=== PATIENT | female | born 1995 | race Caucasian/White ===

== ENCOUNTER 2020-05-17 12:54 | Emergency (ER) | payer OTHER ==
[~2020-05-17] VITALS: Ht 165.1 cm; Wt 84.7 kg
[2020-05-17 12:55] VITALS: BP 153/95
[2020-05-17] MEDS ORDERED: OMEP40CA97 PO (13:01)
[2020-05-17] MEDS ORDERED: MULTTAB20 PO (13:01)
[2020-05-17] MEDS ORDERED: ZOFR4TAB16 PO (13:02)
--- NOTE | 2020-05-17 13:42 | REP ---
INDICATION: FALL. COMPARISON: None. TECHNIQUE: Four views. Appropriately shielded. FINDINGS: The four views show metatarsals and phalanges without visible or displaced fracture. MTP and IP joints were unremarkable. The tarsal bones and articulations are grossly intact. Talonavicular and calcaneocuboid joints are normal. Subtalar joints intact. No heel spurs. Visualized portions of distal radius and ulna were intact. Some minor soft tissue swelling about the hindfoot and ankle. IMPRESSION: 1. Minor soft tissue swelling posteriorly in the hindfoot ankle region without visible or displaced fracture, avulsion, subluxation or other acute bony finding. <Electronically signed by Zak Salas > 05/17/20 [id number]
--- OUTSIDE RECORDS SUMMARY | 2020-05-17 14:06 | CCD ---
Author Author [facility] Address Unknown Phone Unavailable Support Name Relationship Address Phone UE Next Of Kin Unknown Unavailable VIOLETA WANG Next Of Kin [address] [place] [address] Re-disclosure Warning The records that you are about to access may contain information from federally-assisted alcohol or drug abuse programs. If such information is present, then the following federally mandated warning applies: This information has been disclosed to you from records protected by federal confidentiality rules (42 CFR part 2). The federal rules prohibit you from making any further disclosure of this information unless further disclosure is expressly permitted by the written consent of the person to whom it pertains or as otherwise permitted by 42 CFR part 2. A general authorization for the release of medical or other information is NOT sufficient for this purpose. The Federal rules restrict any use of the information to criminally investigate or prosecute any alcohol or drug abuse patient.The records that you are about to access may contain highly sensitive health information, the redisclosure of which is protected by Article 27-F of the [facility] Public Health law. If you continue you may have access to information: Regarding HIV / AIDS; Provided by facilities licensed or operated by the [facility] Office of Mental Health; or Provided by the [facility] Office for People With Developmental Disabilities. If such information is present, then the following [facility] mandated warning applies: This information has been disclosed to you from confidential records which are protected by state law. State law prohibits you from making any further disclosure of this information without the specific written consent of the person to whom it pertains, or as otherwise permitted by law. Any unauthorized further disclosure in violation of state law may result in a fine or halfway sentence or both. A general authorization for the release of medical or other information is NOT sufficient authorization for further disc losure. Insurance Providers Payer name Policy type / Coverage type Policy ID Covered republican ID Covered republican's relationship to ramos Policy Ramos Plan Information [facility] [id number] [facility] [id number]
== END 2020-05-17 14:09 | disposition home or self-care (01) ==
LOC: M ED 12:54
DX: O9A.212 Injury, poisoning and certain other consequences of external causes complicating pregnancy, second trimester (principal); S93.601A Unspecified sprain of right foot, initial encounter; W01.0XXA Fall on same level from slipping, tripping and stumbling without subsequent striking against object, initial encounter; Y92.019 Unspecified place in single-family (private) house as the place of occurrence of the external cause; Y93.9 Activity, unspecified; Y99.9 Unspecified external cause status; Z88.8 Allergy status to other drugs, medicaments and biological substances; Z79.899 Other long term (current) drug therapy; Z3A.15 15 weeks gestation of pregnancy

== ENCOUNTER 2020-10-17 09:25 | Outpatient (CLI) | payer OTHER ==
[2020-10-17] VITALS (8 sets, daily range): BP systolic 122–145; BP diastolic 80–97
[~2020-10-17] VITALS: Ht 165.1 cm; Wt 95.8 kg
[~2020-10-17 09:25] MED LIST: MULTTAB20 PO; OMEP40CA4 PO; ZOFR4TAB16 PO
[2020-10-17] MEDS ORDERED: FIOR1CAP PO (10:09)
[2020-10-17] MEDS ORDERED: SERT25TA85 PO (10:10)
[2020-10-17 10:46] LABS: HEMATOCRIT 36.5 % (36.0-47.0); HEMOGLOBIN 12.3 g/dl (12.0-15.5); MEAN CORPUSCULAR HEMOGLOBIN 31.5 pg (27.0-33.0); MEAN CORPUSCULAR HGB CONC 33.7 g/dl (32.0-36.5); MEAN CORPUSCULAR VOLUME 93.6 fl (80.0-96.0); PLATELET COUNT, AUTOMATED 174 10^3/uL (150-450); WHITE BLOOD COUNT 10.9 10^3/uL (4.0-10.0)
[2020-10-17 10:56] LABS: TOTAL PROTEIN,RANDOM URINE 16.7 MG/DL (0.0-12.0)
[2020-10-17 11:48] LABS: ALT/SGPT 17 U/L (12-78); BILIRUBIN,TOTAL 0.5 MG/DL (0.2-1.0); CREATININE FOR GFR 0.64 MG/DL (0.55-1.30); GLOMERULAR FILTRATION RATE > 60.0 (>60); LDH LACTATE DEHYDROGENASE 143 U/L (84-246); URIC ACID 4.5 MG/DL (2.6-6.0)
--- NOTE | 2020-10-17 12:56 | IPNPDOC ---
Obstetrical Progress Note Date of Service Oct 17, 2020 Subjective 25yo at 36w5d by 8w6d US with LAKESHA Oct presents to OB triage with c omplaint of leakage of fluid x3 days. States she first noticed 'feeling wet' on Thursday night, and has noted a continuous discharge of clear, nonodorous fluid since that time. She is currently using a panty liner which she changes every few hours. Denies any large gush of fluid, vaginal bleeding or regular contractions. +GFM. She is otherwise without complaint. Objective Vital Signs Date Time Temp Pulse Resp B/P (MAP) Pulse Ox O2 Delivery O2 Flow Rate FiO2 10/17/20 11:32 69 135/80 (98) 10/17/20 09:46 97.5 18 Assessment Heart Rate (FHR): 140 Variability: Moderate Accelerations: Positive Decelerations: None Heart Rate Tracing: Category I Tocometer Contractions: Yes (pt not feeling) Frequency: irregular Sterile Vaginal Examination Dilation: 1cm Effacement (%): 50% Station: -2 Cervical Consistency: Soft Cervical Position: Middle Postion/Presentation: Cephalic presentation Assessment and Plan Status: Reassuring Additional Comments Vitals: mild range BP noted on arrival. General: AAOx3, NAD CV/Lungs: normal rate, normal work of breathing Abdomen: gravid speculum exam: neg for nitrizine, pooling and ferning. Pt noted to have a 2-3 cm vaginal cyst along R sidewall, nontender to palpation. Appears to be partially drained (possible cause of fluid leakage). SVE 1/50/-2, soft wet prep + for >50% clue cells Laboratory Tests 10/17/20 10:11 Vital Signs Date Time Temp Pulse Resp B/P (MAP) Pulse Ox O2 Delivery O2 Flow Rate FiO2 10/17/20 11:32 69 135/80 (98) 10/17/20 11:17 79 125/88 (100) 10/17/20 11:02 76 134/95 (108) 10/17/20 10:47 81 132/93 (106) 10/17/20 10:32 82 128/90 (103) 10/17/20 10:18 86 122/88 (99) 10/17/20 10:02 85 145/97 (113) 10/17/20 09:46 97.5 99 18 142/97 (112) Laboratory Tests 10/17/20 10:11: White Blood Count 10.9H, Red Blood Count 3.90L, Hemoglobin 12.3, Hematocrit 36.5, Mean Corpuscular Volume 93.6, Mean Corpuscular Hemoglobin 31.5, Mean Corpuscular Hemoglobin Concent 33.7, Red Cell Distribution Width 13.4, Platelet Count 174, Nucleated Red Blood Cells % (auto) 0.0, Creatinine 0.64, Glomerular Filtration Rate > 60.0, Uric Acid 4.5, Total Bilirubin 0.5, Aspartate Amino Transf (AST/SGOT) 13, Alanine Aminotransferase (ALT/SGPT) 17, Lactate Dehydroge nase 143 10/17/20 10:18: Urine Random Creatinine 111.0, Urine Random Total Protein 16.7H TAUS: cephalic presentation, MVP 5.2cm. anatomy not assessed. A/P: Reviewed findings with patient. No evidence of ROM. Pt noted to have elevated BP in triage, preeclampsia labs ordered and within normal limits. UPC 0.15. Will send patient home with 24hr urine collection and instructed to drop off at [facility]. ROM workup negative. Pt noted to have large vaginal cyst on exam and +clue cells on wet prep. Discussed that cyst may be spontaneously draining causing her leakage of clear fluid, in addition to the findings of BV on wet prep. Pt requesting topical treatment of BV. Recommend reevaluating cyst on KEY visit, and if still present, could offer drainage in office. All questions answered. KEY on Oct ZACHARY CRUZ M.D. Oct 17, 2020 12:56
== END 2020-10-17 11:55 | disposition home or self-care (01) ==
LOC: M LDO 09:25
PROVIDERS: ATTEND Obstetrics & Gynecology
DX: O26.893 Other specified pregnancy related conditions, third trimester (principal); N89.8 Other specified noninflammatory disorders of vagina; N90.7 Vulvar cyst; Z79.899 Other long term (current) drug therapy; Z88.8 Allergy status to other drugs, medicaments and biological substances
CPT/HCPCS: 36415; 59025; 76815; 82247; 82565; 82570; 83615; 84156; 84450; 84460; 84550; 85027; G0378; G0463

== ENCOUNTER 2020-10-18 20:17 | Inpatient (IN) | payer OTHER ==
[~2020-10-18] VITALS: Ht 165.1 cm; Wt 97.7 kg
[~2020-10-18 20:17] MED LIST changes: +FIOR1CAP PO; +SERT25TA85 PO
[2020-10-18 20:44] VITALS: BP 144/98
[2020-10-18 20:54] VITALS: BP 142/97
[2020-10-18] MEDS ORDERED: METHYLERGONOVINE MALEATE 0.2 MG/ML VIAL (J2210) IM PRN (20:55)
[2020-10-18] MEDS ORDERED: LR 1,000 ML IV SCH (20:55)
[2020-10-18] MEDS ORDERED: LACTATED RINGER'S 1000 ML IV ONE (20:55)
[2020-10-18] MEDS ORDERED: OXYTOCIN INJ 10 UNITS/ML VIAL (J2590) IV PRN (20:55)
[2020-10-18 21:12] VITALS: BP 139/88
--- NOTE | 2020-10-18 21:37 | HPEPDOC ---
Obstetrical History & Physical General Date of Admission Item Value Date Time Urine Random Creatinine 152.0 MG/DL 10/18/202233 Urine Random Total Protein 19.7 MG/DL H 10/18/202233 Vital Signs Label Value Date Time Blood Pressure Assessment 139/88 (105) 10/18/202111 Source Automatic Cuff (NIBP) Pulse 88 10/18/202111 Pulse 95 10/18/202053 Blood Pressure Assessment 142/97 (112) 10/18/202053 Source Automatic Cuff (NIBP) Blood Pressure Assessment 144/98 (113) 10/18/202043 Source Automatic Cuff (NIBP) Pulse 105 10/18/202043 Item Value Date Time White Blood Count 11.3 10^3/uL H 10/18/202126 Red Blood Count 3.69 10^6/uL L 10/18/202126 Hemoglobin 11.7 g/dl L 10/18/202126 Hematocrit 34.2 % L 10/18/202126 Mean Corpuscular Volume 92.7 fl 10/18/202126 Mean Corpuscular Hemoglobin 31.7 pg 10/18/202126 Mean Corpuscular Hemoglobin Concent 34.2 g/dl 10/18/202126 Red Cell Distribution Width 13.3 % 10/18/202126 Platelet Count 174 10^3/uL 10/18/202126Oct 18, 2020 at 20:36 Primary Care Physician: Fiasal Plata MD History of Present Illness SROM CLEAR FLUID NO CONTRACTIONS AT36.6 WEEKS Chief Complaint: Contractions, pre-term Information Provided By: Patient Age: 25 : 3 Term: 1 Pre-term: 0 Abortions: 1 Livin Care Care: Good Care Number of Visits: 8 Dating Final EDC: Nov 09, 2020 LMP: Jan 26, 2020 Weeks + Days: 8.6 Estimated Date of Confinement: Nov 09, 2020 EGA at Admission: 36.6 Antepartum Course Diagnos(e)s PPROM AT 36.6 WEEKS Height (inches): 64 Pre- weight (lbs.): 182 Admission Weight (lbs.): 211.0 Change in Weight (lbs.): 29 Past Medical History Past Obstetrical History #1: Past Obstetrical History: Multigravida Date of Delivery: Feb 13, 2012 Gestation: 39.0 Type of Delivery: Spontaneous Vaginal Del. 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: Spontaneous , Other (VULVAR DYSPLASIA) Past Medical History Medical History MIGRAINES,ANXIETY DEPRESSION ON MEDICATION Surgical History: Other (FINGER SURGERY) Family History Family History MOTHER CERVICAL DYSPLASIA,GRANDMOTHER HEME CANCER ,LIVER DISEASE Social History Social history TO AD NO VIOLENCE NON SMOKER NO ETOH NO VAPING NO RECREATIONAL DRUGS Marital Status: Family situation: Spouse/partner home Psychosocial History: Anxiety (ON [place]) * Smoker: non-smoker Alcohol: Denies Drugs: denies Abuse Violence Screening Have you been hit/kicked/slapp: No Have you been sexually assault: No Imunizations Tdap status: current Influenza Status: current Allergies Coded Allergies: sumatriptan (Verified Adverse Reaction, Mild, ITCHY THROAT, 05/17/20) Medications Scheduled No122/Iron/Folic Acid ( Multi Tablet) 1 Each Tablet, 1 TAB PO DAILY Sertraline Hcl (Sertraline HCl) 25 Mg Tablet, 1 TAB PO DAILY Scheduled PRN Butalb/Acetaminophen/Caffeine (Fioricet 50-300-40 mg Capsule) 1 Each Capsule, 1 CAP PO for HEADACHE Physical Examination Physical Examination GENERAL: Alert and oriented times three. BREAST: . ABDOMEN: Gravid and non-tender to touch. FETUS: Is vertex (VTX) by sterile vaginal examination (SVE), fetus is vertex (VTX) by Philippe. HEART RATE: Regular rate and rhythm. LUNGS: Clear to auscultation (CTA). EXTREMITIES: No edema. No clonus. Deep tendon reflexes (DTRs) + . Other physical findings NORMOCEPHALIC,ORIENTATED ALL SPHERES NO ACUTE DISTRESS ATROMATIC NECK FULL RANGE MOTION, PERRLA,CHEST CLEAR TO BASES NO MURMUR REGULAR RHYTHM NO WHEEZES NO RHONCHI NO SOB NO BACK TENDERNESS 4 QUADRANT BOWEL SOUNDS SF HEIGHT 40 CM NO RASHES LESIONS OR PARIETIS NO ARTHRALGIA MYALGIA OR JOINT PAIN, NO BRUISING OR BLEEDING , NO URGENCY NO FREQUENCY NO NUSEA NO VOMITING NO DIABETIC ISSUES . PELVIC EXAM 2CM SOFT MID POSITION VERTEX 50% EFFACED -3 STATION ANOTHER 400 CC AMNIOTIC FLUID . CATEGORY 1 STRIP NO CONTRACTIONS Laboratory Data 24H LABS Laboratory Tests 2 10/18/20 20:38: Serology Scanned Report Hepatitis B Testing Pertinent Laboratoy Data Blood Type: O+ RBC Antibody Screen: Negative HIV: Negative Hepatitis B: Negative Rapid Plasma Reagin: Nonreactive Rubella: Immune Varicella: Immune Chlamydia/Gonorrhea: Negative Group B Streptococcus: Negative Cystic Fibrosis: Negative Anatomy Ultrasound Ultrasound Date: Jun 22, 2020 Placenta Location: Anterior Normal Anatomy: Yes Estimated Weight (grams): 358 Steroid Therapy Steroid Therapy: No Vaginal Examination Dilation: 2cm Effacement: 50% Station: -3 Cervical Consistency: Soft Cervical Position: Middle Presentation: Cephalic presentation Position: Vertex (occiput) Assessment Variability: Moderate Accelerations: Present Decelerations: None Tocometer Contractions: No Assessment/Plan Assessment 25-year-old (G)3 para (P)1 at 36.6 weeks by 8.6 -week ultrasound. Presents to Labor and Delivery (L&D) .WITH PPROM Plan Admit and orient. [employer] Supervisor and consent. Diet: RAJ Group B Streptococcus (GBS) [negative]. Labs and intravenous (IV) per unit protocol. Counseled on Pitocin and AUGMENTATION . Lactated Ringers (LR): Bolus 1000 mL PRE EPIDURAL, then at 125 mL/hr. Anticipate [normal spontaneous delivery ()]. C-S as appropriate. Labor and Delivery Counseling PLAN IS AWAIT SPONTANEOUS LABOR IF NOT ACTIVE WILL AUGMENT WITH PITOCIN AND OR COOK'S CATHETER EPIDURAL NEEDED REVIEWED VAGINAL DELIVERY CAN SUSTAIN VAGINAL BLADDER OR BOWEL LACERATIONS MAY NEED EPISIOTOMY WHEN UNABLE TO EFFECTIVELY PUSH BABY OUT SPONTANEOUSLY. REVIEWED NEED FOR REPAIR OF ALL LACERATIONS. REVIEWED USE OF FORCEPS OR VACUUM MAY LEAD TO NRFHT, REQUIRE IMMEDIATE DELIVERY BASED ON WELL BEING POSSIBLE CEPHALOHEMATOMA, SCRATCHES BRUISING OR LACERATIONS . IS FOR MATERNAL OR NEEDS , WILL BE DISCUSSED PRIOR TO COMMENCEMENT. RISK OF IS HEMORRHAGE INFECTION PERFORATION , REOPERATION REMOTE BLOOD TRANSFUSION, REMOTE HYSTERECTOMY FOR LIFE THREATENING BLEEDING REMOTE LACERATION OR ADMISSION TO NICU EXPRESSED UNDERSTANDING SAFE TO PROCEED Faisal Plata MD Oct 18, 2020 21:37
[2020-10-18 21:45] LABS: HEMATOCRIT 34.2 % (36.0-47.0); HEMOGLOBIN 11.7 g/dl (12.0-15.5); MEAN CORPUSCULAR HEMOGLOBIN 31.7 pg (27.0-33.0); MEAN CORPUSCULAR HGB CONC 34.2 g/dl (32.0-36.5); MEAN CORPUSCULAR VOLUME 92.7 fl (80.0-96.0); PLATELET COUNT, AUTOMATED 174 10^3/uL (150-450); RED BLOOD COUNT 3.69 10^6/uL (4.00-5.40); WHITE BLOOD COUNT 11.3 10^3/uL (4.0-10.0)
[2020-10-18 23:01] VITALS: BP 136/91
[2020-10-18 23:09] LABS: TOTAL PROTEIN,RANDOM URINE 19.7 MG/DL (0.0-12.0)
[2020-10-18 23:31] VITALS: BP 118/78
[2020-10-19] VITALS (38 sets, daily range): BP systolic 105–159; BP diastolic 6–110
[2020-10-19] MEDS ORDERED: LR 1,000 ML IV SCH ×2 (00:05→08:35)
[2020-10-19] MEDS ORDERED: OXYTOCIN DRIP 30 UNITS in IV 1 EA IV SCH ×2 (00:05→08:35)
[2020-10-19] MEDS ORDERED: ACETAMINOPHEN 500 MG TAB PO ONE (00:30)
[2020-10-19] MEDS ORDERED: FENTANYL 2MCG/ML ROPIVACAINE 0.2% IN 0.9% NACL 100ML IVBAG As Ordered ONE (04:05)
[2020-10-19] MEDS ORDERED: ePHEDrine SULFATE 25 MG/5 ML(5MG/ML) SYRINGE IV PRN (04:10)
[2020-10-19] MEDS ORDERED: FENTANYL/ROPIVACAINE/NACL BAG 100 ML EPIDURAL SCH (04:10)
[2020-10-19] MEDS ORDERED: NALOXONE INJ 0.4MG/1ML VIAL (J2310 PER 1MG) IV PRN (04:10)
[2020-10-19] MEDS ORDERED: diphenhydrAMINE 50MG/ML VIAL (J1200) IV PRN (04:10)
[2020-10-19] MEDS ORDERED: EPIDURAL/PCA KEYS XX PRN (04:10)
[2020-10-19] MEDS ORDERED: EPIDURAL COMMENT XX SCH (04:10)
[2020-10-19] MEDS ORDERED: LACTATED RINGER'S 1000 ML IV PRN (04:10)
[2020-10-19] MEDS ORDERED: REFRIGERATOR IV KEYS XX PRN (04:10)
[2020-10-19] MEDS ORDERED: ONDANSETRON 4MG/2ML VIAL IV PRN (04:10)
[2020-10-19 08:17] LABS: CORD GAS ABE A -9.3; CORD GAS ABE V -5.7; CORD GAS HCO3 A 22.3 MEQ/L; CORD GAS HCO3 V 18.5 MEQ/L; CORD GAS O2 SAT A 25.3 %; CORD GAS PCO2 A 77.9 mmHg; CORD GAS PCO2 V 33.8 mmHg; CORD GAS PH A 7.075 UNITS; CORD GAS PH V 7.355 UNITS; CORD GAS PO2 A 18.8 mmHg; CORD GAS PO2 V 40.9 mmHg; CORD GAS SBC A 15.7 MEQ/L; CORD GAS SBC V 19.6 MEQ/L; CORD GAS TCO2 A 24.7 MEQ/L; CORD GAS TCO2 V 19.5 MEQ/L
[2020-10-19] MEDS ORDERED: METHYLERGONOVINE MALEATE 0.2 MG TAB PO PRN (08:35)
[2020-10-19] MEDS ORDERED: MOM 30ML SUSPENSION UDC PO PRN (08:35)
[2020-10-19] MEDS ORDERED: DIBUCAINE 1% OINTMENT 30GM TOP PRN (08:35)
[2020-10-19] MEDS ORDERED: ACETAMINOPHEN TAB 650MG DOSE (2X325MG) PO PRN (08:35)
[2020-10-19] MEDS ORDERED: DOCUSATE SODIUM 100MG CAPSULE PO PRN (08:35)
[2020-10-19] MEDS ORDERED: OXYTOCIN INJ 10 UNITS/ML VIAL (J2590) IV ONE (08:35)
[2020-10-19] MEDS ORDERED: ANUSOL HC CREAM 30GM TOP PRN (08:35)
[2020-10-19] MEDS ORDERED: RHOGAM 300 MCG (1500 IU) INJ (J2790) IM SCH (08:35)
[2020-10-19] MEDS ORDERED: MEASLES,MUMPS,RUBELLA VACCINE INJ (MMR-II) (90707) SC SCH (08:35)
[2020-10-19] MEDS ORDERED: METHYLERGONOVINE MALEATE 0.2 MG/ML VIAL (J2210) IM STA (08:46)
[2020-10-19] MEDS ORDERED: OXYTOCIN 30 UNITS IN 0.9% NaCl 500ML IV BAG (J2590) As Ordered ONE (09:08)
[2020-10-19] MEDS: OXYTOCIN DRIP 30 UNITS in IV 1 EA IV SCH ×2 (09:10→16:00)
[2020-10-19] MEDS: PRENATAL VITAMINS CHEWABLE TABLET PO SCH (10:13)
[2020-10-19] MEDS: IBUPROFEN 600MG TAB PO PRN ×2 (10:13→19:37)
[2020-10-19] MEDS: SERTRALINE HCL 25 MG TABLET PO SCH (10:13)
[2020-10-19] MEDS: OMEPRAZOLE 20 MG CAP PO SCH ×2 (11:17→21:00)
--- NOTE | 2020-10-19 11:34 | DN ---
DELIVERY NOTE DATE OF DELIVERY: 10/19/2020 A 25-year-old 3 admitted with spontaneous rupture of membranes at 36 and 6 weeks of gestation. Delivered with an epidural spontaneous, male , 7 pounds 11 ounces, 3500 grams, scores of 8 and 9 at one and five minutes, respectively. Cord around the neck times one tight. Arterial pH 7.07, base excess-9.3, venous pH 7.35, base excess -5.7. She was noted to have polyhydramnios, etiology unknown. She also suffers from anxiety. The placenta delivered spontaneously thereafter, a 3-vessel cord, membranes and tissues intact. The uterus contracted well down on Pitocin. Reviewing, the anterior, posterior, and lateral pho[place] were complete. Sphincter was tight. She has a vaginal cyst on the left upper end of the vagina wall, which is benign. Does not require any intervention. The uterus contracted well down. The patient and baby tolerating procedure well.
[2020-10-19] MEDS: ACETAMINOPHEN 500 MG TAB PO PRN ×2 (14:36→23:47)
[2020-10-19 18:47] LABS: HEMATOCRIT 31.5 % (36.0-47.0); HEMOGLOBIN 10.7 g/dl (12.0-15.5); MEAN CORPUSCULAR HEMOGLOBIN 31.8 pg (27.0-33.0); MEAN CORPUSCULAR VOLUME 93.5 fl (80.0-96.0); PLATELET COUNT, AUTOMATED 159 10^3/uL (150-450); RED BLOOD COUNT 3.37 10^6/uL (4.00-5.40)
[2020-10-19 18:53] LABS: ALBUMIN 2.5 GM/DL (3.2-5.2); ALT/SGPT 18 U/L (12-78); BILIRUBIN,TOTAL 0.5 MG/DL (0.2-1.0); BLOOD UREA NITROGEN 5 MG/DL (7-18); CALCIUM LEVEL 8.9 MG/DL (8.5-10.1); CARBON DIOXIDE LEVEL 22 MEQ/L (21-32); CHLORIDE LEVEL 111 MEQ/L (98-107); CREATININE FOR GFR 0.53 MG/DL (0.55-1.30); GLOMERULAR FILTRATION RATE > 60.0 (>60); GLUCOSE, FASTING 94 MG/DL (70-100); POTASSIUM SERUM 3.6 MEQ/L (3.5-5.1); SODIUM LEVEL 141 MEQ/L (136-145); TOTAL PROTEIN 5.2 GM/DL (6.4-8.2)
[2020-10-20] MEDS: IBUPROFEN 600MG TAB PO PRN ×2 (04:16→13:05)
[2020-10-20 06:00] VITALS: BP 128/79
--- NOTE | 2020-10-20 06:50 | IPNPDOC ---
Progress Note Date of Service: Oct 20, 2020 Day#: 1 Progress Note Ms. Corrigan is a 25yo PPD1 s/p after IOL for PPROM at 36+6, delivering at 37 weeks. 7 pounds 11 ounces, 3500 grams, scores of 8 and 9. She has been ambulating, voiding spontaneously without issue and tolerating regular diet. Breast feeding without issue. Reports lochia is light. Patient is ambulating well. Reports some cramping with . Denies any pain. Voiding and stooling without difficulty. APC 1. depression, anxiety 2. migraines 3. gestational hypertension, normal pre-eclampsia labs OBJECTIVE: VITAL SIGNS: Within normal limits, afebrile. Alert and oriented times three. No increased wob Heart rate: non-tachycardic Abdomen: Fundus firm at U-2. Soft, NTTP. [Minimal] lochia per pt ASSESSMENT: Ms. Corrigan is a 25yo PPD1 s/p after IOL for PPROM at 36+6, delivering at 37 weeks. 7 pounds 11 ounces, 3500 grams, scores of 8 and 9. She has been ambulating, voiding spontaneously without issue and tolerating regular diet. Vitals within normal limits with exception of BP which has been normotensive to mild range, but not meeting criteria for treatment. Denied si/sx of pre-e. Afebrile, hemodynamically stable with no evidence of infection. PLAN: 1. Discharge to home today. 2. Tylenol and Motrin for pain. 3. Encourage breast feeding and ambulation. 4. Undecided contraception, educated on close interval 5. Routine PP visit in 2 and 6 weeks in clinic. 6. Discussed return precautions at length. VS, I&O, 24H, Fishbone Vital Signs/I&O Vital Signs Date Time Temp Pulse Resp B/P (MAP) Pulse Ox O2 Delivery O2 Flow Rate FiO2 10/20/20 06:00 99.0 67 18 128/79 (95) 98 Room Air I&O- Last 24 Hours up to 6 AM 10/20/20 06:00 Intake Total 1718.5 ml Output Total 800 ml Balance 918.5 ml Laboratory Data 24H LABS Laboratory Tests 2 10/19/20 08:09: Cord Arterial Blood pH 7.075, Cord Arterial Blood PCO2 77.9, Cord Arterial Blood PO2 18.8, Cord Arterial Blood HCO3 22.3, Cord Arterial Blood Total CO2 24.7, Cord Arterial Blood Base Excess -9.3, Cord Arterial Base Excess (Standard 15.7, Cord Arterial Bld Oxygen Saturation 25.3, Cord Venous Blood pH 7.355, Cord Venous Blood PCO2 33.8, Cord Venous Blood PO2 40.9, Cord Venous Blood HCO3 18.5, Cord Venous Blood Total CO2 19.5, Cord Venous Base Excess (Actual) -5.7, Cord Venous Base Excess (Standard) 19.6, Cord Venous Blood Oxygen Saturation 86.0 10/19/20 17:53: Nucleated Red Blood Cells % (auto) 0.0, Anion Gap 8, Glomerular Filtration Rate > 60.0, Calcium Level 8.9, Total Bilirubin 0.5, Aspartate Amino Transf (AST/SGOT) 22, Alanine Aminotransferase (ALT/SGPT) 18, Alkaline Phosphatase 87, Total Protein 5.2L, Albumin 2.5L, Albumin/Globulin Ratio 0.9L CBC/BMP Laboratory Tests 10/19/20 17:53 TANA ROLLINS DO Oct 20, 2020 06:50
--- NOTE | 2020-10-20 06:53 | OBDS ---
[facility] Obstetrical Discharge Sum. A/P, Post Course List any complications Ms. Corrigan is a 25yo who had a vaginal delivery after induction of labor for pre-mature pre-labor rupture of membranes at 36+6, delivering at 37 weeks. 7 pounds 11 ounces, 3500 grams, scores of 8 and 9. She has been ambulating, voiding spontaneously without issue and tolerating regular diet. Breast feeding without issue. Reports lochia is light. Patient is ambulating well. Reports some cramping with . Denies any pain. Voiding and stooling without difficulty. Vitals within normal limits with exception of BP which has been normotensive to mild range, but not meeting criteria for treatment. Denied si/sx of pre-e. Afebrile, hemodynamically stable with no evidence of infection. PLAN: 1. Discharge to home today. 2. Tylenol and Motrin for pain. 3. Encourage breast feeding and ambulation. 4. Undecided contraception, educated on risks of close interval 5. Routine visit in 2 and 6 weeks in clinic. 6. Discussed return precautions at length to include pelvic rest. 7. Educated on signs and symptoms of pre-eclampsia. 8. Recommended blood pressure check in 72h and 7d. TANA ROLLINS DO Oct 20, 2020 06:53
[2020-10-20 07:38] LABS: HEMATOCRIT 27.6 % (36.0-47.0); HEMOGLOBIN 9.2 g/dl (12.0-15.5); MEAN CORPUSCULAR HEMOGLOBIN 31.2 pg (27.0-33.0); MEAN CORPUSCULAR HGB CONC 33.3 g/dl (32.0-36.5); MEAN CORPUSCULAR VOLUME 93.6 fl (80.0-96.0); PLATELET COUNT, AUTOMATED 155 10^3/uL (150-450); RED BLOOD COUNT 2.95 10^6/uL (4.00-5.40); WHITE BLOOD COUNT 11.4 10^3/uL (4.0-10.0)
[2020-10-20] MEDS: OMEPRAZOLE 20 MG CAP PO SCH (08:44)
[2020-10-20] MEDS: SERTRALINE HCL 25 MG TABLET PO SCH (08:44)
[2020-10-20] MEDS: ACETAMINOPHEN 500 MG TAB PO PRN (08:44)
[2020-10-20] MEDS: PRENATAL VITAMINS CHEWABLE TABLET PO SCH (08:44)
--- NOTE | 2020-10-21 21:17 | IPN ---
PROGRESS NOTE DATE: 10/19/2020 SUBJECTIVE: This patient has requested circumcision of her male infant. After discussing risks and benefits of circumcision, the medical, the nonmedical indications, the penile block and aftercare, expressed understanding of penile block, aftercare and bleeding, signed the consent form. All questions were answered; 20 minute discussion. We await clearance by the telecom field technician.
== END 2020-10-20 17:40 | disposition home or self-care (01) | DRG 807 ==
LOC: M LDO 20:17 → M LDI 20:36 → M OBS 10-19 10:15
PROVIDERS: ADMIT Obstetrics & Gynecology; ATTEND Obstetrics & Gynecology
PROC: 10E0XZZ Delivery of Products of Conception, External Approach (ICD-10-PCS; principal; 2020-10-19)
DX: O42.013 Preterm premature rupture of membranes, onset of labor within 24 hours of rupture, third trimester (principal); Z37.0 Single live birth; Z3A.36 36 weeks gestation of pregnancy; O99.344 Other mental disorders complicating childbirth; F41.9 Anxiety disorder, unspecified; O69.1XX0 Labor and delivery complicated by cord around neck, with compression, not applicable or unspecified; O13.4 Gestational [pregnancy-induced] hypertension without significant proteinuria, complicating childbirth

== ENCOUNTER 2021-08-14 13:19 | Day surgery (SDC) | payer OTHER ==
[~2021-08-14] VITALS: Ht 165.1 cm; Wt 92.0 kg
[~2021-08-14 13:19] MED LIST changes: +D-10TAB3 PO; +D-50CAP PO; +IBUP80TA PO; +NAPR-849 PO; +NS 1,000 ML IV ONE; +OMEP40CA5 PO
[2021-08-14] MEDS ORDERED: fentaNYL 100 MCG/2 ML INJECTION As Ordered ONE (14:46)
[2021-08-14] MEDS ORDERED: LIDOCAINE 2% 100MG/5ML SDV (FOR ANES.) As Ordered ONE (14:46)
[2021-08-14] MEDS ORDERED: propofoL 200 MG/20 ML VIAL As Ordered ONE (14:46)
[2021-08-14 15:50] VITALS: BP 128/85
== END 2021-08-14 16:02 | disposition home or self-care (01) ==
LOC: M OPP 13:19
PROVIDERS: ATTEND Internal Medicine Gastroenterology
DX: R12 Heartburn (principal); R14.0 Abdominal distension (gaseous); Z79.899 Other long term (current) drug therapy; Z88.8 Allergy status to other drugs, medicaments and biological substances
CPT/HCPCS: 43239; 88305; J3010

== ENCOUNTER 2022-05-18 17:41 | Outpatient (CLI) | payer OTHER ==
[~2022-05-18] VITALS: Ht 165.1 cm; Wt 95.0 kg
[~2022-05-18 17:41] MED LIST changes: -NS 1,000 ML IV ONE
[2022-05-18] MEDS ORDERED: PRENTAB9 PO (17:56)
[2022-05-18] MEDS ORDERED: HOME MED LIST COMPLETE! XX SCH (18:00)
[2022-05-18 18:08] VITALS: BP 104/60
== END 2022-05-18 18:34 | disposition home or self-care (01) ==
LOC: M LDO 17:41
PROVIDERS: ATTEND Obstetrics & Gynecology
DX: O26.893 Other specified pregnancy related conditions, third trimester (principal); N39.3 Stress incontinence (female) (male); Z3A.31 31 weeks gestation of pregnancy; Z88.8 Allergy status to other drugs, medicaments and biological substances
CPT/HCPCS: 59025; 76815; G0463

== ENCOUNTER 2022-07-11 20:23 | Outpatient (CLI) | payer OTHER ==
[~2022-07-11] VITALS: Ht 165.1 cm; Wt 98.9 kg
[~2022-07-11 20:23] MED LIST changes: +PRENTAB9 PO
[2022-07-11 20:38] VITALS: BP 129/85
[2022-07-11] MEDS ORDERED: SERT-141 PO (20:44)
== END 2022-07-11 21:40 | disposition home or self-care (01) ==
LOC: M LDO 20:23
PROVIDERS: ATTEND Obstetrics & Gynecology
DX: O47.1 False labor at or after 37 completed weeks of gestation (principal); Z3A.39 39 weeks gestation of pregnancy; O26.893 Other specified pregnancy related conditions, third trimester; N36.8 Other specified disorders of urethra; Z88.8 Allergy status to other drugs, medicaments and biological substances
CPT/HCPCS: 59025; G0463

== ENCOUNTER 2022-07-14 21:44 | Inpatient (IN) | payer OTHER ==
[~2022-07-14] VITALS: Ht 165.1 cm; Wt 98.7 kg
[~2022-07-14 21:44] MED LIST changes: -HOME MED LIST COMPLETE! XX SCH
[2022-07-14 22:11] VITALS: BP 128/88
[2022-07-14 22:43] LABS: HEMATOCRIT 33.8 % (36.0-47.0); HEMOGLOBIN 10.9 g/dl (12.0-15.5); MEAN CORPUSCULAR HEMOGLOBIN 29.1 pg (27.0-33.0); MEAN CORPUSCULAR HGB CONC 32.2 g/dl (32.0-36.5); MEAN CORPUSCULAR VOLUME 90.1 fl (80.0-96.0); PLATELET COUNT, AUTOMATED 210 10^3/uL (150-450); RED BLOOD COUNT 3.75 10^6/uL (4.00-5.40); WHITE BLOOD COUNT 14.5 10^3/uL (4.0-10.0)
[2022-07-14] MEDS ORDERED: HOME MED LIST COMPLETE! XX SCH (22:45)
[2022-07-14] MEDS ORDERED: TRANEXAMIC ACID INJection 1,000 MG in NS 100 ML IV PRN (22:55)
[2022-07-14] MEDS ORDERED: OXYTOCIN DRIP 30 UNITS in IV 1 EA IV PRN ×4 (22:55)
[2022-07-14] MEDS ORDERED: METHYLERGONOVINE MALEATE 0.2MG/ML 1ML VIAL IM PRN (22:55)
[2022-07-14] MEDS ORDERED: OXYTOCIN INJ 10UNITS/ML 1ML VIAL IM PRN (22:55)
[2022-07-14] MEDS ORDERED: LR 1,000 ML IV SCH (22:55)
[2022-07-14] MEDS ORDERED: LIDOCAINE 1% MDV 20ML VIAL INFIL PRN (22:55)
[2022-07-14] MEDS ORDERED: LACTATED RINGER'S 1000 ML IV STA (22:55)
[2022-07-15] VITALS (19 sets, daily range): BP systolic 117–173; BP diastolic 69–108
[2022-07-15] MEDS ORDERED: ePHEDrine SULFATE 25 MG/5 ML(5MG/ML) SYRINGE IVP PRN (00:30)
[2022-07-15] MEDS ORDERED: NALOXONE INJ 0.4MG/1ML VIAL IV PRN (00:30)
[2022-07-15] MEDS ORDERED: ONDANSETRON 4MG 2ML VIAL IV PRN (00:30)
[2022-07-15] MEDS ORDERED: EPIDURAL/PCA KEYS XX PRN (00:30)
[2022-07-15] MEDS ORDERED: LR 500 ML IV PRN (00:30)
[2022-07-15] MEDS ORDERED: FENTANYL/ROPIVACAINE/NACL BAG 100 ML EPIDURAL SCH (00:30)
[2022-07-15] MEDS ORDERED: diphenhydrAMINE 50MG/ML VIAL IV PRN (00:30)
[2022-07-15] MEDS ORDERED: REFLB XX ONE (00:38)
[2022-07-15] MEDS ORDERED: OXYTOCIN DRIP 30 UNITS in IV 1 EA IV SCH (00:55)
[2022-07-15] MEDS ORDERED: DOCUSATE SODIUM 100MG CAPSULE PO PRN (11:25)
[2022-07-15] MEDS ORDERED: METHYLERGONOVINE MALEATE 0.2 MG TAB PO PRN (11:25)
[2022-07-15] MEDS ORDERED: DIBUCAINE 1% OINTMENT 30GM TOP PRN (11:25)
[2022-07-15] MEDS ORDERED: RHOGAM 300MCG (1500IU) INJ IM SCH (11:25)
[2022-07-15] MEDS: ACETAMINOPHEN TAB 650MG DOSE (2X325MG) PO PRN ×2 (11:53→18:12)
[2022-07-15 13:17] LABS: HEMATOCRIT 31.8 % (36.0-47.0); HEMOGLOBIN 10.3 g/dl (12.0-15.5); MEAN CORPUSCULAR HEMOGLOBIN 29.4 pg (27.0-33.0); MEAN CORPUSCULAR HGB CONC 32.4 g/dl (32.0-36.5); MEAN CORPUSCULAR VOLUME 90.9 fl (80.0-96.0); PLATELET COUNT, AUTOMATED 211 10^3/uL (150-450); WHITE BLOOD COUNT 19.5 10^3/uL (4.0-10.0)
[2022-07-15 13:27] LABS: URIC ACID 4.4 MG/DL (3.1-7.8)
[2022-07-15 13:29] LABS: LDH LACTATE DEHYDROGENASE 139 U/L (120-246)
[2022-07-15 13:30] LABS: ALT/SGPT 11 U/L (7.0-40); AST/SGOT 10 U/L (<34); BILIRUBIN,TOTAL 0.7 MG/DL (0.3-1.2); CREATININE FOR GFR 0.52 MG/DL (0.55-1.30); GLOMERULAR FILTRATION RATE > 60.0 (>60)
[2022-07-15] MEDS: IBUPROFEN 800 MG TAB PO PRN ×2 (14:44→22:51)
[2022-07-15] MEDS: SERTRALINE HCL 50 MG TAB PO SCH (15:52)
[2022-07-15] MEDS: OMEPRAZOLE 20MG CAP PO SCH (20:07)
[2022-07-16 02:00] VITALS: BP 139/81
[2022-07-16 06:09] VITALS: BP 130/82
[2022-07-16] MEDS: SERTRALINE HCL 50 MG TAB PO SCH (07:52)
[2022-07-16] MEDS: OMEPRAZOLE 20MG CAP PO SCH (07:52)
[2022-07-16] MEDS: IBUPROFEN 800 MG TAB PO PRN (07:53)
[2022-07-16] MEDS ORDERED: PERCOCET 5MG/325MG TAB PO PRN (08:00)
[2022-07-16] MEDS ORDERED: PRENATAL VITAMINS CHEWABLE TABLET PO SCH (09:00)
[2022-07-16 10:00] VITALS: BP 122/78
[2022-07-17] MEDS ORDERED: MEASLES,MUMPS,RUBELLA VACCINE INJ (MMR-II) SC.IMMUN ONE (09:00)
== END 2022-07-16 14:28 | disposition home or self-care (01) | DRG 807 ==
LOC: M LDO 21:44 → M LDI 23:21 → M OBS 07-15 14:35
PROVIDERS: ADMIT Obstetrics & Gynecology; ATTEND Obstetrics & Gynecology
PROC: 10E0XZZ Delivery of Products of Conception, External Approach (ICD-10-PCS; principal; 2022-07-15)
PROC: 0HQ9XZZ Repair Perineum Skin, External Approach (ICD-10-PCS; 2022-07-15)
DX: O69.82X0 Labor and delivery complicated by other cord entanglement, without compression, not applicable or unspecified (principal); Z37.0 Single live birth; Z3A.39 39 weeks gestation of pregnancy; O70.0 First degree perineal laceration during delivery; Z88.8 Allergy status to other drugs, medicaments and biological substances

== ENCOUNTER → 2022-07-14 | Outpatient (CLI) | payer OTHER ==
[~2022-07-14] VITALS: Ht 165.1 cm; Wt 98.2 kg
[~2022-07-14] MED LIST changes: +HOME MED LIST COMPLETE! XX SCH; +SERT-141 PO
[2022-07-14 14:53] VITALS: BP 134/82
== END ==
LOC: M LDO 14:28
PROVIDERS: ATTEND Advanced Practice Midwife
DX: O47.1 False labor at or after 37 completed weeks of gestation (principal); Z3A.39 39 weeks gestation of pregnancy; Z88.8 Allergy status to other drugs, medicaments and biological substances
CPT/HCPCS: 59025; G0463

== ENCOUNTER 2022-12-02 11:20 | Day surgery (SDC) | payer OTHER ==
[~2022-12-02] VITALS: Ht 165.1 cm; Wt 95.2 kg
[~2022-12-02 11:20] MED LIST changes: +ESOM0.1C PO; +[UNRECOGNIZED DRUG - OTHER] PO; +ceFAZolin SOD 2 GM in IV 1 EA IV ONE
[2022-12-02] MEDS ORDERED: LR 1,000 ML IV SCH ×2 (11:30→14:35)
[2022-12-02 12:07] LABS: HEMATOCRIT 40.1 % (36.0-47.0); HEMOGLOBIN 13.3 g/dl (12.0-15.5); MEAN CORPUSCULAR HEMOGLOBIN 28.7 pg (27.0-33.0); MEAN CORPUSCULAR HGB CONC 33.2 g/dl (32.0-36.5); MEAN CORPUSCULAR VOLUME 86.6 fl (80.0-96.0); PLATELET COUNT, AUTOMATED 257 10^3/uL (150-450); RED BLOOD COUNT 4.63 10^6/uL (4.00-5.40); WHITE BLOOD COUNT 6.4 10^3/uL (4.0-10.0)
[2022-12-02] MEDS ORDERED: fentaNYL 250 MCG/5 ML INJECTION As Ordered ONE (12:17)
[2022-12-02] MEDS ORDERED: MIDAZOLAM INJ 2MG/2ML VIAL As Ordered ONE (12:17)
[2022-12-02] MEDS ORDERED: propofoL 200 MG/20 ML VIAL As Ordered ONE ×2 (12:19→14:06)
[2022-12-02] MEDS ORDERED: LIDOCAINE 2% 100MG/5ML SDV (FOR ANES.) As Ordered ONE (12:19)
[2022-12-02] MEDS ORDERED: ONDANSETRON 4MG 2ML VIAL As Ordered ONE (12:19)
[2022-12-02 12:33] LABS: ALKALINE PHOSPHATASE 67 U/L (46-116); ALT/SGPT 36 U/L (7.0-40); AST/SGOT 15 U/L (<34); BLOOD UREA NITROGEN 15 MG/DL (9-23); CALCIUM LEVEL 8.9 MG/DL (8.5-10.1); CARBON DIOXIDE LEVEL 25 MMOL/L (20-31); CHLORIDE LEVEL 108 MMOL/L (98-107); CREATININE FOR GFR 0.75 MG/DL (0.55-1.30); GLOMERULAR FILTRATION RATE > 60.0 (>60); GLUCOSE, FASTING 88 MG/DL (60-100); POTASSIUM SERUM 4.1 MMOL/L (3.5-5.1); SODIUM LEVEL 140 MMOL/L (136-145); TOTAL PROTEIN 7.1 G/DL (5.7-8.2)
[2022-12-02] MEDS ORDERED: ESTROGENS VAGINAL CREAM 30GM As Ordered ONE (13:13)
[2022-12-02] MEDS ORDERED: ACETAMINOPHEN 1000MG 100ML IV BAG As Ordered ONE (14:04)
[2022-12-02] MEDS ORDERED: CHLOROPROCAINE PRES. FREE 3% 20ML VIAL As Ordered ONE (14:11)
[2022-12-02] MEDS ORDERED: KETOROLAC 60MG 2ML VIAL As Ordered ONE (14:12)
[2022-12-02] MEDS ORDERED: fentaNYL 100 MCG/2 ML INJECTION IV PRN (14:35)
[2022-12-02] MEDS ORDERED: oxyCODONE 5MG TAB PO PRN (14:35)
[2022-12-02] MEDS ORDERED: ONDANSETRON 4MG 2ML VIAL IV PRN (14:35)
[2022-12-02 16:10] VITALS: BP 155/98; TEMP 97.3; O2SAT 98
[2022-12-02] MEDS ORDERED: KETOROLAC 30 MG/ML 1ML VIAL IV ONE (20:00)
== END 2022-12-02 16:30 | disposition home or self-care (01) ==
LOC: M SDC 11:20
PROVIDERS: ATTEND Obstetrics & Gynecology
DX: Q52.4 Other congenital malformations of vagina (principal); K21.9 Gastro-esophageal reflux disease without esophagitis; F41.9 Anxiety disorder, unspecified; F32.A Depression, unspecified; G43.909 Migraine, unspecified, not intractable, without status migrainosus; Z79.899 Other long term (current) drug therapy; Z88.8 Allergy status to other drugs, medicaments and biological substances
CPT/HCPCS: 36415; 57135; 80053; 81025; 85027; 86850; 86900; 86901; J0131; J0665; J0690; J1885; J2401; J2405